=== PATIENT | female | born 1985 | race Caucasian/White ===

== ENCOUNTER 2019-05-09 09:01 | Emergency (ER) | payer OTHER ==
[2019-05-09 09:10] VITALS: BP 115/76
[2019-05-09] MEDS ORDERED: IBUPROFEN 800 MG TAB PO ONE (09:16)
[2019-05-09] MEDS ORDERED: HYDROcodone/ACETAMINOPHEN 5-325 MG TAB PO ONE (09:16)
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
== END 2019-05-09 11:10 | disposition home or self-care (01) ==
LOC: ED 09:01
DX: S39.012A Strain of muscle, fascia and tendon of lower back, initial encounter (principal); Z98.890 Other specified postprocedural states; Z79.899 Other long term (current) drug therapy; V49.59XA Passenger injured in collision with other motor vehicles in traffic accident, initial encounter; Y93.89 Activity, other specified; Y92.410 Unspecified street and highway as the place of occurrence of the external cause; Y99.8 Other external cause status
CPT/HCPCS: 72070; 72100